=== PATIENT | male | born 1965 | race Caucasian/White ===

== ENCOUNTER → 2024-05-13 | Outpatient (CLI) | payer SELFPAY ==
--- NOTE | 2024-05-13 14:46 | RAD_ITS ---
PROCEDURE: LUMBOSACRAL SPINE SERIES, FOUR VIEWS REASON FOR EXAM: Pain shooting from foot to left hip. TECHNIQUE: Weightbearing AP, lateral, and oblique view(s) of the lumbar spine. COMPARISON: None. FINDINGS: Vertebral bodies normal in height. Intervertebral disc spaces normal in height. Minimal spondylosis at L4 anteriorly. No spondylolysis or spondylolisthesis. No scoliosis. No foraminal narrowing. Facets unremarkable. Narrowing of the left hip joint most noticeable at the superior lip of the acetabulum.. Soft tissues unremarkable. RAD/L/S Spine Min 4 Views IMPRESSION: 1. Unremarkable lumbosacral spine series. 2. Narrowing of the left hip joint due to mild degenerative arthritis. Reading Location: [facility]
--- NOTE | 2024-05-13 14:50 | RAD_ITS ---
PROCEDURE: CERVICAL SPINE SERIES, 4-6 VIEWS REASON FOR EXAM: NECK PAIN. TECHNIQUE: AP, lateral, and oblique. COMPARISON: None. FINDINGS: Normal vertebral body heights. No visible fracture. Multilevel spondylosis. Multilevel disc space narrowing, C3 through C6. Normal alignment. No foraminal narrowing. Facets are unremarkable. Prevertebral soft tissues are unremarkable. RAD/Cerv Spine 4 or 5 Views IMPRESSION: Multilevel spondylosis and degenerative disc disease. No acute osseous findings. Reading Location: [facility]
== END | disposition home or self-care (01) ==
PROVIDERS: PCP Family Medicine; Referring Provider Chiropractor Orthopedic; Visit Provider Chiropractor Orthopedic
DX: M99.01 Segmental and somatic dysfunction of cervical region (principal); M99.03 Segmental and somatic dysfunction of lumbar region
CPT/HCPCS: 72050; 72110